=== PATIENT | male | born 1945 | race Caucasian/White ===

== ENCOUNTER 2017-05-30 21:59 | Emergency (ER) | payer MEDICARE, BC ==
[2017-05-31] MEDS: ASPIRIN 325 MG TAB PO (01:20)
[2017-05-31 01:47] LABS: ADD MAN DIFF? NO
[2017-05-31 01:51] LABS: BASOPHIL # 0.1 10^3/ul (0.0-0.1); BASOPHILS % 0.8 % (0.0-2.0); EOSINOPHILS # 0.5 10^3/ul (0.0-0.5); EOSINOPHILS % 6.2 % (0.0-7.0); HEMATOCRIT 40.6 % (42.0-52.0); HEMOGLOBIN 14.2 g/dl (14.0-18.0); LYMPHOCYTES # 2.4 10^3/ul (0.8-2.9); LYMPHOCYTES % 31.1 % (15.0-51.0); MEAN CORPUSCULAR HEMOGLOBIN 30.5 pg (29.0-33.0); MEAN CORPUSCULAR VOLUME 87.3 fl (82.0-101.0); MEAN PLATELET VOLUME 10.9 fl (7.4-10.4); MONOCYTE # 0.7 10^3/ul (0.3-0.9); MONOCYTES % 9.7 % (0.0-11.0); NEUTROPHIL # 3.9 10^3/ul (1.6-7.5); NEUTROPHILS % 51.8 % (39.0-77.0); PLATELET COUNT 260 10^3/UL (140-415); RED BLOOD COUNT 4.65 10^6/ul (4.70-6.10); RED CELL DISTRIBUTION WIDTH 12.5 % (11.5-14.5)
[2017-05-31 01:51] LABS: WHITE BLOOD COUNT 7.6 10^3/ul (4.8-10.8)
[2017-05-31 02:03] LABS: ADD UMIC NO; UR ASCORBIC ACID 20 mg/dL (NEGATIVE); UR BILIRUBIN (Dip) NEGATIVE (NEGATIVE); UR BLOOD (Dip) NEGATIVE (NEGATIVE); UR CLARITY CLEAR (CLEAR); UR COLOR YELLOW (YELLOW); UR GLUCOSE (Dip) NEGATIVE (NEGATIVE); UR KETONES (Dip) NEGATIVE (NEGATIVE); UR LEUKOCYTE ESTERASE (Dip) NEGATIVE Leu/ul (NEGATIVE); UR NITRITE (Dip) NEGATIVE (NEGATIVE); UR SPECIFIC GRAVITY (Dip) 1.021 (1.003-1.030); UR TOTAL PROTEIN (Dip) NEGATIVE (NEGATIVE); UR UROBILINOGEN (Dip) NEGATIVE (NEGATIVE)
[2017-05-31] MEDS: SOD CHLORIDE 0.9% 1,000 ML IV (02:15)
[2017-05-31 02:19] LABS: ANION GAP 14 (8-16); BLOOD UREA NITROGEN 22 mg/dl (7-20); CALCIUM 9.9 mg/dl (8.4-10.2); CARBON DIOXIDE 28 mmol/L (21-31); CHLORIDE 101 mmol/L (97-110); GLUCOSE 109 mg/dl (70-220); POTASSIUM 4.1 mmol/L (3.5-5.1); SODIUM 139 mmol/L (135-144)
[2017-05-31 02:23] LABS: CREATINE KINASE 126 IU/L (23-200)
[2017-05-31 02:27] LABS: B-TYPE NATRIURETIC PEPTIDE 368 PG/ML (0-125); CK INDEX 1.4; TROPONIN-I 0.021 ng/ml (0.00-0.12)
[2017-05-31 02:33] LABS: CK-MB 1.77 ng/ml (0.0-2.4)
[2017-05-31 02:34] LABS: TROPONIN-I 0.021 ng/ml (0.00-0.12)
[2017-05-31] MEDS ORDERED: ONDANSETRON 4 MG INJ IV (04:00)
[2017-05-31] MEDS ORDERED: ACETAMINOPHEN 325 MG TAB PO (04:00)
[2017-05-31 07:50] LABS: CREATINE KINASE 101 IU/L (23-200)
[2017-05-31 08:00] LABS: CK INDEX 1.6
[2017-05-31 08:01] LABS: CK-MB 1.65 ng/ml (0.0-2.4); TROPONIN-I < 0.012 ng/ml (0.00-0.12)
[2017-05-31] MEDS ORDERED: LORAZEPAM 0.5 MG TAB PO (10:00)
[2017-05-31] MEDS ORDERED: NACL 0.9% 3 ML SYG IV (10:00)
[2017-05-31] MEDS ORDERED: ONDANSETRON 4 MG TAB PO (10:00)
[2017-05-31] MEDS ORDERED: NITROGLYCERIN (SL) 0.4 MG TAB SL (10:00)
[2017-05-31] MEDS ORDERED: DOCUSATE SODIUM 100 MG CAP PO (10:00)
[2017-05-31] MEDS ORDERED: ZOLPIDEM 5 MG TAB PO (10:00)
[2017-05-31] MEDS: HYDROCHLOROTHIAZIDE 25 MG TAB PO (13:07)
[2017-05-31] MEDS: METOPROLOL 100 MG TAB PO (13:09)
[2017-05-31] MEDS: BENAZEPRIL 40 MG TAB PO (13:23)
[2017-05-31 14:15] LABS: MAGNESIUM 1.7 mg/dl (1.7-2.5)
[2017-05-31] MEDS: VERAPAMIL (SR) 120 MG TAB PO (17:45)
[2017-05-31] MEDS: MAGNESIUM SULFATE 3 GM in DEXTROSE 5% 100 ML IVPB (18:57)
[2017-05-31] MEDS: ATORVASTATIN 10 MG TAB PO (20:53)
[2017-05-31] MEDS ORDERED: VERAPAMIL (SR) 120 MG TAB PO (21:00)
[2017-05-31] MEDS: ACETAMINOPHEN 325 MG TAB PO (22:13)
[2017-06-01] MEDS ORDERED: VERAPAMIL (SR) 120 MG TAB PO (09:00)
[2017-06-01 09:02] LABS: ADD MAN DIFF? NO
[2017-06-01 09:09] LABS: WHITE BLOOD COUNT 6.5 10^3/ul (4.8-10.8)
[2017-06-01 09:09] LABS: BASOPHIL # 0.1 10^3/ul (0.0-0.1); BASOPHILS % 0.9 % (0.0-2.0); EOSINOPHILS # 0.4 10^3/ul (0.0-0.5); EOSINOPHILS % 5.7 % (0.0-7.0); HEMATOCRIT 41.2 % (42.0-52.0); HEMOGLOBIN 14.1 g/dl (14.0-18.0); LYMPHOCYTES # 1.8 10^3/ul (0.8-2.9); LYMPHOCYTES % 27.2 % (15.0-51.0); MEAN CORPUSCULAR HEMOGLOBIN 30.4 pg (29.0-33.0); MEAN CORPUSCULAR HGB CONC 34.2 g/dl (32.0-37.0); MEAN CORPUSCULAR VOLUME 88.8 fl (82.0-101.0); MONOCYTE # 0.6 10^3/ul (0.3-0.9); NEUTROPHIL # 3.7 10^3/ul (1.6-7.5); NEUTROPHILS % 56.9 % (39.0-77.0); PLATELET COUNT 238 10^3/UL (140-415); RED BLOOD COUNT 4.64 10^6/ul (4.70-6.10); RED CELL DISTRIBUTION WIDTH 12.8 % (11.5-14.5)
[2017-06-01 09:28] LABS: ANION GAP 12 (8-16); BLOOD UREA NITROGEN 20 mg/dl (7-20); CALCIUM 9.1 mg/dl (8.4-10.2); CARBON DIOXIDE 28 mmol/L (21-31); CHLORIDE 106 mmol/L (97-110); CREATININE 1.16 mg/dl (0.61-1.24); GLUCOSE 106 mg/dl (70-220); POTASSIUM 3.7 mmol/L (3.5-5.1); SODIUM 142 mmol/L (135-144)
[2017-06-01 09:35] LABS: MAGNESIUM 2.1 mg/dl (1.7-2.5)
[2017-06-01] MEDS: REGADENOSON 0.4 MG/5 ML SYG (10:20)
[2017-06-01] MEDS: ASPIRIN (EC) 81 MG TAB PO (11:24)
[2017-06-01] MEDS: POTASSIUM CHLORIDE (SR) 20 MEQ TAB PO (11:24)
[2017-06-01] MEDS: BENAZEPRIL 40 MG TAB PO (11:25)
[2017-06-01] MEDS: HYDROCHLOROTHIAZIDE 25 MG TAB PO (11:25)
[2017-06-01] MEDS: VERAPAMIL (SR) 180 MG TAB PO (12:39)
[2017-06-02] MEDS ORDERED: VERAPAMIL (SR) 180 MG TAB PO (09:00)
== END 2017-06-01 16:15 | disposition home or self-care (01) ==
LOC: MS4 06-01 00:01 → E/R 21:59 → MS3 05-31 04:41 → MS4 05-31 18:18
DX: R00.2 Palpitations (principal); I10 Essential (primary) hypertension; R42 Dizziness and giddiness; R60.0 Localized edema
CPT/HCPCS: 36415; 71045; 78452; 80048; 81003; 82550; 82553; 83735; 83880; 84443; 84484; 85025; 93005; 93017; 93306; 99217; 99285-25